=== PATIENT | male | born 1945 | race Caucasian/White ===

== ENCOUNTER 2020-08-31 09:42 | Outpatient (CLI) | payer MEDICARE, MEDICAID, SELFPAY | END 2020-08-31 09:43 | disposition home or self-care (01) | LOC: ANHBWCAUD 09:46 | DX: H90.3 Sensorineural hearing loss, bilateral (principal) | CPT/HCPCS: 92552; 92555; 92567 ==

== ENCOUNTER 2022-03-19 10:15 | Outpatient (CLI) | payer MEDICARE, MEDICAID, SELFPAY | END 2022-03-19 10:16 | disposition home or self-care (01) | LOC: ANHBWCAUD 10:43 | DX: Z01.10 Encounter for examination of ears and hearing without abnormal findings (principal); H91.93 Unspecified hearing loss, bilateral | CPT/HCPCS: 92553; 92555; 92567 ==

== ENCOUNTER 2023-05-13 10:22 | Outpatient (CLI) | payer MEDICARE, MEDICAID, SELFPAY | END 2023-05-13 10:23 | disposition home or self-care (01) | LOC: ANHBWCAUD 10:22 | PROVIDERS: Visit Provider Family Medicine | DX: H91.93 Unspecified hearing loss, bilateral (principal) | CPT/HCPCS: 92552; 92555; 92567 ==